=== PATIENT | male | born 1995 | race Caucasian/White ===

== ENCOUNTER 2017-09-27 07:00 | Emergency (ER) | payer OTHER ==
[2017-09-27 07:12] VITALS: O2SAT 98
--- NOTE | 2017-09-27 07:27 | ERPHSYRPT ---
- History of Present Illness Time Seen by Provider: 09/27/17 07:22 Source: patient Exam Limitations: no limitations Patient Subjective Stated Complaint: Pt states "I have poisen daylin really bad on my feet" Triage Nursing Assessment: Pt alert and oriented X 3, skin pwd. TP ambulates with a limp. PT has small wounds between toes on both feet, red rash up right leg. Physician History: The patient is a 22-year-old male complaining of getting poison daylin on both feet and his ankles that has worsened over the past 3 days. He has no more areas of poison daylin. He is allergic to poison daylin. He does not have any in his face. He has been using calamine lotion without good results. He states this difficult for him to wear his work boots because they rub up against a poison daylin. Timing/Duration: day(s) (3), gradual onset, worse Quality: itchy Severity: moderate Location: feet Possible Causes: exposure to allergen Modifying Factors: Improves With: calamine lotion Allergies/Adverse Reactions: No Known Drug Allergies Allergy (Verified 12/27/15 13:21) Home Medications: No Home Meds [No Home Meds] 1 [facility] UD 12/27/15 [History] Hx Tetanus, Diphtheria Vaccination/Date Given: Yes Hx Influenza Vaccination/Date Given: No Hx Pneumococcal Vaccination/Date Given: No Immunizations Up to Date: Yes - Review of Systems Constitutional: No Fever, No Chills Eyes: No Symptoms Ears, Nose, & Throat: No Symptoms Respiratory: No Cough, No Dyspnea Cardiac: No Chest Pain, No Edema, No Syncope Abdominal/Gastrointestinal: No Abdominal Pain, No Nausea, No Vomiting, No Diarrhea Genitourinary Symptoms: No Dysuria Musculoskeletal: No Back Pain, No Neck Pain Skin: Rash Neurological: No Dizziness, No Focal Weakness, No Sensory Changes Psychological: No Symptoms Endocrine: No Symptoms Hematologic/Lymphatic: No Symptoms Immunological/Allergic: No Symptoms All Other Systems: Reviewed and Negative - Past Medical History Pertinent Past Medical History: Yes Neurological History: No Pertinent History ENT History: No Pertinent History Cardiac History: No Pertinent History Respiratory History: No Pertinent History Endocrine Medical History: No Pertinent History Musculoskeletal History: No Pertinent History GI Medical History: No Pertinent History History: No Pertinent History Psycho-Social History: No Pertinent History Male Reproductive Disorders: No Pertinent History Other Medical History: MRSA L ARM - Past Surgical History Past Surgical History: No Neuro Surgical History: No Pertinent History Cardiac: No Pertinent History Respiratory: No Pertinent History Gastrointestinal: No Pertinent History Genitourinary: No Pertinent History Musculoskeletal: No Pertinent History Male Surgical History: No Pertinent History - Social History Smoking Status: Current every day smoker How long have you smoked: 10 years Exposure to second hand smoke: Yes Drug Use: none Patient Lives Alone: Yes - Nursing Vital Signs Nursing Vital Signs: Initial Vital Signs Temperature 98.0 F 09/27/17 07:05 Pulse Rate 76 09/27/17 07:05 Respiratory Rate 16 09/27/17 07:05 Blood Pressure 139/75 09/27/17 07:05 O2 Sat by Pulse Oximetry 98 09/27/17 07:05 Pain Scale Pain Intensity 5 - Physical Exam General Appearance: no apparent distress, alert Eye Exam: PERRL/EOMI, eyes nml inspection Ears, Nose, Throat Exam: normal ENT inspection, pharynx normal, moist mucous membranes Neck Exam: normal inspection, non-tender, supple, full range of motion Respiratory Exam: normal breath sounds, lungs clear, No respiratory distress Cardiovascular Exam: regular rate/rhythm, normal heart sounds Gastrointestinal/Abdomen Exam: soft, mass, No tenderness Rectal Exam: not done Back Exam: normal inspection, normal range of motion, No CVA tenderness, No vertebral tenderness Extremity Exam: normal inspection, normal range of motion Neurologic Exam: alert, oriented x 3, cooperative, normal mood/affect, sensation nml, No motor deficits Skin Exam: rash (Examination of bilateral feet: There are areas of linear rash with vesicles containing clear fluid. The rash can be seen between the toes and extending and areas along the medial aspect of both ankles.) SpO2 Interpretation: normal SpO2: 98 Oxygen Delivery: Room Air - Progress Progress: unchanged Counseled pt/family regarding: diagnosis - Departure Time of Disposition: 07:29 Departure Disposition: Home Clinical Impression: Contact dermatitis due to poison daylin Condition: Stable Critical Care Time: No Referrals: DOCTOR,NO FAMILY [Primary Care Provider] - Additional Instructions: You have poison daylin on your feet. Take prednisone 60 mg daily for 5 days. You were given a work excuse for today. Follow-up with your primary medical doctor as needed. Prescriptions: Prednisone 20 mg [Deltasone 20 mg] 3 tab PO DAILY #15 tablet
[2017-09-27 07:38] VITALS: BP 134/68; PULSE 80
== END 2017-09-27 07:39 | disposition home or self-care (01) ==
LOC: ED 07:00
DX: L23.7 Allergic contact dermatitis due to plants, except food (principal)
CPT/HCPCS: 99283

== ENCOUNTER 2017-10-13 12:25 | Emergency (ER) | payer OTHER ==
[2017-10-13 12:50] VITALS: BP 148/80; PULSE 74; O2SAT 99
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
[2017-10-13] MEDS ORDERED: TORAdol 30 mg Injection IM ONE (13:17)
[2017-10-13] MEDS ORDERED: Phenergan 25 MG INJ IM ONE (13:17)
[2017-10-13] MEDS ORDERED: Phenergan 25 MG INJ ONE (13:27)
[2017-10-13] MEDS ORDERED: TORAdol 30 mg Injection ONE (13:27)
--- NOTE | 2017-10-13 14:13 | XRAY ---
Indication: Left-sided headache, dizziness, and blurry vision. Multiple contiguous axial images obtained through the head without contrast. Comparison: December 27, 2015. Again normal appearing brain parenchyma, ventricles, and bony calvarium. Visualized paranasal sinuses and mastoid air cells are clear. Impression: Again normal CT head without contrast exam. CT DI 71.08
== END 2017-10-13 14:45 | disposition home or self-care (01) ==
LOC: ED 12:25
DX: G43.909 Migraine, unspecified, not intractable, without status migrainosus (principal)
CPT/HCPCS: 70450; 96372; 99283; J1885; J2550

== ENCOUNTER 2017-10-31 09:18 | Emergency (ER) | payer OTHER ==
[2017-10-31 09:28] VITALS: BP 146/88; PULSE 71; O2SAT 100
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
[2017-10-31] MEDS: BACTRIM DS TABLET PO STA (09:35)
[2017-10-31] MEDS ORDERED: BACTRIM DS TABLET PO ONE (09:35)
== END 2017-10-31 09:46 | disposition home or self-care (01) ==
LOC: ED 09:18
DX: L03.115 Cellulitis of right lower limb (principal)
CPT/HCPCS: 99283; A9270-GY

== ENCOUNTER 2019-02-09 00:18 | Emergency (ER) | payer MEDICAID, OTHER ==
[2019-02-09] MEDS ORDERED: Sodium Chloride 0.9% 1000 ML 1,000 ML IV STA ×2 (00:44→01:03)
[2019-02-09] MEDS ORDERED: Sodium Chloride 0.9% 1000 ML 1,000 ML ONE ×2 (00:45→01:08)
[2019-02-09] MEDS ORDERED: TORAdol 30 mg Injection IV ONE (00:49)
[2019-02-09] MEDS ORDERED: TORAdol 30 mg Injection ONE (00:50)
[2019-02-09 01:16] LABS: BASOPHIL % 0.3 % (0.0-0.4); Basophil (Absolute #) 0.03 (0-0.4); Eosinophil % 2.6 % (0.00-5.0); Hematocrit 40.9 % (42-50); Hemoglobin 13.8 gm/dl (12.5-18.0); Lymphocyte (Absolute #) 1.44 (1.0-4.6); Lymphocytes % 12.4 % (24.0-44.0); Mean Cell Volume 90.1 fl (78-100); Mean Corpuscular Hemoglobin 30.4 pg (26-32); Mean Corpuscular Hgb Concent. 33.7 g/dl (32-36); Monocyte (Absolute #) 1.34 (0.0-1.3); Monocytes % 11.5 % (0.0-12.0); Neutrophil % 73.2 % (36.0-66.0); Platelet Count 227 K/mm3 (150-450); Red Blood Count 4.54 M/mm3 (4.1-5.6); Red Cell Distribution Width 11.9 % (11.5-14.0); White Blood Count 11.6 K/mm3 (4.0-10.5)
[2019-02-09 01:24] LABS: ALKALINE PHOSPHATASE 59 U/L (38-126); ANION GAP 13.9 MEQ/L (5-15); BLOOD UREA NITROGEN 6 mg/dL (9-20); CHLORIDE 100 mmol/L (98-107); Calcium 9.1 mg/dL (8.4-10.2); Carbon Dioxide 28 mmol/L (22-30); Creatinine 1 0.74 mg/dL (0.66-1.25); Glucose 118 mg/dL (74-106); Potassium 4.2 mmol/L (3.5-5.1); SGOT/AST 21 U/L (17-59); SGPT/ALT 13 U/L (0-50); SODIUM 138 mmol/L (137-145); Total Protein 7.5 g/dL (6.3-8.2)
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
[2019-02-09] MEDS ORDERED: ROCEPHIN 1 Gm-D5w 50 ml Bag** 1 G/50 ML IVPB IV STA (02:17)
[2019-02-09] MEDS ORDERED: ROCEPHIN 1 Gm-D5w 50 ml Bag** 1 G/50 ML IVPB IV ONE (02:22)
[2019-02-09 02:45] LABS: INFLUENZA A NEGATIVE (NEGATIVE); INFLUENZA B NEGATIVE (NEGATIVE); RESPIRATORY SYNCTIAL VIRUS NEGATIVE (Negative)
[2019-02-09 02:53] LABS: Appearance CLEAR (CLEAR); Bilirubin NEGATIVE (NEGATIVE); Blood NEGATIVE Ery/ul (0-5); Glucose NEGATIVE (NEGATIVE); Ketones NEGATIVE (NEGATIVE); Leukocyte Esterase TRACE (NEGATIVE); Nitrite NEGATIVE (NEGATIVE); Protein,Urine Dip NEGATIVE (Negative); Specific Gravity 1.005 (1.005-1.025); Urobilinogen NEGATIVE mg/dL (0-1)
[2019-02-09 03:37] VITALS: BP 154/89; PULSE 78; O2SAT 98
--- NOTE | 2019-02-09 14:55 | XRAY ---
Exam: Testicular ultrasound from 02/09/2019. Comparison: None. Indication: Rule out testicular torsion. Findings: The right testicle measures 4.0 cm x 1.9 cm x 3.7 cm and reveals a uniform acoustical architecture without evidence of mass or microlithiasis. Normal color blood flow is seen within the right testicle. The head of the right epididymis measures 1.2 cm x 0.9 cm x 1.1 cm and appears unremarkable. The left testicle measures 4.15 cm x 2.2 cm x 2.8 cm and also reveals a uniform acoustical architecture without evidence of mass or microlithiasis. There is relatively increased blood flow within the left testicle. The head of the left epididymis measures 1.3 cm x 1.4 cm x 1.1 cm and demonstrates some increased blood flow within it as well. No significant hydrocele is seen. Impression: 1. No evidence of testicular torsion is seen. 2. There is relative increased blood flow within the left testicle and epididymis as compared to the right side suggesting left-sided epididymo-orchitis. No abscess or other mass is seen.
== END 2019-02-09 03:37 | disposition home or self-care (01) ==
LOC: ED 00:18
DX: N45.1 Epididymitis (principal); N41.9 Inflammatory disease of prostate, unspecified; K05.6 Periodontal disease, unspecified; R50.9 Fever, unspecified
CPT/HCPCS: 36000; 36415; 76870; 80053; 81001; 83605; 85025; 87040; 87086; 87631; 96374; 99284; J0696; J1885

== ENCOUNTER 2019-06-18 13:40 | Emergency (ER) | payer SELFPAY ==
[2019-06-18 13:52] VITALS: BP 133/89; PULSE 96; O2SAT 100
--- NOTE | 2019-06-18 14:19 | XRAY ---
Indication: Cough. Comparison: November 17, 2015. Portable chest again demonstrates normal heart, lungs, and bony thorax.
[2019-06-18] MEDS ORDERED: DELTASONE 20 MG PO ONE (14:43)
[2019-06-18] MEDS ORDERED: DELTASONE 20 MG ONE (14:45)
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
== END 2019-06-18 14:54 | disposition home or self-care (01) ==
LOC: ED 13:40
DX: J40 Bronchitis, not specified as acute or chronic (principal); R05 Cough
CPT/HCPCS: 71045; 99283; A9270-GY

== ENCOUNTER 2019-11-30 23:15 | Emergency (ER) | payer MEDICAID ==
[2019-11-30] MEDS ORDERED: MOTRIN 600 MG PO ONE (23:45)
[2019-11-30] MEDS ORDERED: AMOXIL 500 MG PO ONE (23:45)
[2019-11-30] MEDS ORDERED: PERCOCET TABLET 5/325MG PO STA ×2 (23:45→23:52)
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
[2019-12-01] MEDS ORDERED: AMOXIL 500 MG ONE (00:03)
[2019-12-01] MEDS ORDERED: MOTRIN 600 MG ONE (00:03)
[2019-12-01] MEDS ORDERED: PERCOCET TABLET 5/325MG ONE (00:03)
[2019-12-01 00:18] VITALS: BP 168/98; PULSE 62; O2SAT 95
== END 2019-12-01 00:22 | disposition home or self-care (01) ==
LOC: ED 23:15
DX: K02.9 Dental caries, unspecified (principal); K08.89 Other specified disorders of teeth and supporting structures
CPT/HCPCS: 99283; A9270-GY

== ENCOUNTER 2019-12-16 22:01 | Emergency (ER) | payer MEDICAID ==
[2019-12-16 22:21] VITALS: BP 159/69; PULSE 102; O2SAT 97
[2019-12-16] MEDS ORDERED: Zofran 4 MG/2 ML VIAL IV ONE (22:39)
[2019-12-16] MEDS ORDERED: Hydromorphone 1 mg/ml Injection IV ONE (22:39)
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
[2019-12-16] MEDS ORDERED: ROCEPHIN 1 Gm-D5w 50 ml Bag** 1 G/50 ML IVPB IV STA (22:40)
[2019-12-16] MEDS ORDERED: Vibramycin 100 MG PO ONE (22:41)
[2019-12-16] MEDS ORDERED: Sodium Chloride 0.9% 1000 ML 1,000 ML IV SCH (22:45)
[2019-12-16] MEDS ORDERED: Rocephin 500 MG INJ IM ONE (23:08)
[2019-12-16] MEDS ORDERED: Vibramycin 100 MG ONE (23:20)
[2019-12-16] MEDS ORDERED: Rocephin 500 MG INJ ONE (23:20)
--- NOTE | 2019-12-17 09:24 | XRAY ---
Indication: Left testicular pain and swelling. Two-dimensional testicular sonogram performed. Comparison: February 09, 2019. Both testicles again homogeneous in echogenicity. Right testicle measures 4.4 x 2.0 x 2.8 cm and the left measures 3.8 x 2.4 x 3.1 cm. Right testicle demonstrate normal color perfusion. Left testicle again demonstrates hyperemic color Doppler flow favoring orchitis. Again enlarged left epididymis wasn't before measuring 1.8 x 1.8 x 1.8 cm with hypervascular color Doppler flow favoring epididymitis. Right epididymis sonographically normal. No suspicious extratesticular mass or hydrocele. Impression: 1. Again sonographic features as detailed favoring left epididymoorchitis. 2. Remaining testicular sonogram is negative. Comment: Preliminary report was given.
== END 2019-12-16 23:42 | disposition home or self-care (01) ==
LOC: ED 22:01
DX: N45.1 Epididymitis (principal)
CPT/HCPCS: 76870; 96372; 99284; J0696; A9270-GY

== ENCOUNTER 2021-05-11 10:34 | Emergency (ER) | payer MEDICAID | END 2021-05-11 11:00 | disposition left against medical advice (07) | LOC: ED 10:34 | DX: Z53.9 Procedure and treatment not carried out, unspecified reason (principal) ==

== ENCOUNTER 2021-08-17 18:54 | Emergency (ER) | payer MEDICAID, OTHER ==
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
[2021-08-17] MEDS ORDERED: Sodium Chloride 0.9% 1000 ML 1,000 ML IV STA (19:10)
[2021-08-17] MEDS ORDERED: LOPRESSOR INJECTION IV ONE ×2 (19:11→19:22)
[2021-08-17] MEDS ORDERED: Sodium Chloride 0.9% 1000 ML 1,000 ML ONE (19:23)
[2021-08-17 19:41] LABS: Absolute Neutrophil Ct (ANC) 2.94 x10^3/uL (1.4-6.9); Basophil (Absolute #) 0.05 x10^3/uL (0-0.4); Eosinophil % 8.3 % (0.00-5.0); Eosinophil (Absolute #) 0.47 x10^3/uL (0-0.5); Hematocrit 45.5 % (42-50); Hemoglobin 15.6 g/dL (12.5-18.0); Lymphocyte (Absolute #) 1.28 x10^3/uL (1.0-4.6); Lymphocytes % 22.6 % (24.0-44.0); Mean Cell Volume 89.9 fL (78-100); Mean Corpuscular Hemoglobin 30.8 pg (26-32); Mean Corpuscular Hgb Concent. 34.3 g/dL (32-36); Mean Platelet Volume 8.6 fL (7.5-11.0); Monocyte (Absolute #) 0.91 x10^3/uL (0.0-1.3); Neutrophil % 51.8 % (36.0-66.0); Platelet Count 235 x10^3/uL (150-450); Red Blood Count 5.06 x10^6/uL (4.1-5.6); Red Cell Distribution Width 12.5 % (11.5-14.0); White Blood Count 5.7 x10^3/uL (4.0-10.5)
[2021-08-17] MEDS ORDERED: HYDROCODONE-ACETAMIN 2.5-108/5 ML SOLUTION PO STA ×2 (19:41→21:21)
[2021-08-17] MEDS ORDERED: solu-MEDROL 125 MG, Sterile H2O 10 ml 2 ML IV ONE ×2 (19:41)
[2021-08-17] MEDS ORDERED: HYDROCODONE-ACETAMIN 2.5-108/5 ML SOLUTION ONE ×2 (19:46→21:56)
[2021-08-17] MEDS ORDERED: Sterile H2O 10 ml IJ ONE (19:46)
[2021-08-17] MEDS ORDERED: solu-MEDROL ONE (19:46)
[2021-08-17 19:54] LABS: ALBUMIN 4.4 g/dL (3.5-5.0); ALKALINE PHOSPHATASE 77 U/L (38-126); ANION GAP 17.1 MEQ/L (5-15); BLOOD UREA NITROGEN 15 mg/dL (9-20); CHLORIDE 104 mmol/L (98-107); Calcium 8.7 mg/dL (8.4-10.2); Carbon Dioxide 22 mmol/L (22-30); EST GLOMERULAR FILTRATION RATE > 60.0 ML/MIN; Glucose 94 mg/dL (74-106); Potassium 3.7 mmol/L (3.5-5.1); SGOT/AST 26 U/L (17-59); SGPT/ALT 17 U/L (0-50); SODIUM 139 mmol/L (137-145); Total Protein 7.8 g/dL (6.3-8.2)
[2021-08-17 20:10] LABS: Group A Strep NOT DETECTED (NEGATIVE)
[2021-08-17 20:14] LABS: Appearance CLEAR (CLEAR); Bilirubin NEGATIVE (NEGATIVE); Glucose NEGATIVE (NEGATIVE); Ketones NEGATIVE (NEGATIVE); Mucus SLIGHT /HPF (NEGATIVE)
[2021-08-17 20:15] LABS: Nitrite NEGATIVE (NEGATIVE); Ph 6.5 (5-6); Protein,Urine Dip NEGATIVE (Negative); RBC NEGATIVE Ery/ul (0-5); Urine Cultured Indicated? YES; Urobilinogen 0.2 mg/dL (0-1)
[2021-08-17 20:20] LABS: Dipstick done @ ? MAIN LAB
[2021-08-17 20:21] LABS: INFLUENZA A NEGATIVE (NEGATIVE); INFLUENZA B NEGATIVE (NEGATIVE); RESPIRATORY SYNCTIAL VIRUS NEGATIVE (Negative); SARS-CoV-2 Xpert Express NEGATIVE (NEGATIVE)
[2021-08-17] MEDS ORDERED: ROCEPHIN 1 Gm-D5w 50 ml Bag** 1 G/50 ML IVPB IV STA (21:16)
[2021-08-17] MEDS ORDERED: ROCEPHIN 1 Gm-D5w 50 ml Bag** 1 G/50 ML IVPB IV ONE (21:26)
[2021-08-17 22:04] VITALS: BP 141/100; PULSE 100; O2SAT 96
--- NOTE | 2021-08-18 08:42 | XRAY ---
Indication: Fever and cough. Comparison: June 18, 2019. Portable chest again demonstrates normal heart, lungs, and bony thorax.
== END 2021-08-17 22:08 | disposition home or self-care (01) ==
LOC: ED 18:54
DX: N39.0 Urinary tract infection, site not specified (principal); J02.9 Acute pharyngitis, unspecified; R50.9 Fever, unspecified; R51.9 Headache, unspecified; R05.1 Acute cough; Z72.0 Tobacco use; Z79.899 Other long term (current) drug therapy; Z28.310 Unvaccinated for COVID-19; Z79.891 Long term (current) use of opiate analgesic
CPT/HCPCS: 0241U; 36000; 36415; 71045; 80053; 81015; 83605; 85025; 86308; 87040; 87086; 87651; 94760; 96374; 96375; 99284; J0696; J2930; A9270-GY

== ENCOUNTER 2021-10-22 21:35 | Emergency (ER) | payer OTHER ==
[2021-10-22 21:47] VITALS: O2SAT 97
[2021-10-22] MEDS ORDERED: Augmentin 875-125 Tablet PO ONE (21:50)
[2021-10-22] MEDS ORDERED: TORAdol 30 mg Injection IM ONE (21:50)
[2021-10-22] MEDS ORDERED: TORAdol 30 mg Injection ONE (21:54)
[2021-10-22] MEDS ORDERED: Augmentin 875-125 Tablet ONE (21:54)
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
[2021-10-22 22:09] VITALS: BP 145/91; PULSE 96
== END 2021-10-22 22:09 | disposition home or self-care (01) ==
LOC: ED 21:35
DX: K04.7 Periapical abscess without sinus (principal); R68.84 Jaw pain; R51.9 Headache, unspecified; I10 Essential (primary) hypertension; Z72.0 Tobacco use; Z79.899 Other long term (current) drug therapy; Z79.891 Long term (current) use of opiate analgesic; Z28.310 Unvaccinated for COVID-19
CPT/HCPCS: 96372; 99283; J1885; A9270-GY

== ENCOUNTER 2021-12-13 13:10 | Emergency (ER) | payer OTHER ==
[2021-12-13 13:26] VITALS: O2SAT 98
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
[2021-12-13] MEDS ORDERED: DECADRON 10MG INJ. PO ONE (14:15)
[2021-12-13] MEDS ORDERED: DECADRON 10MG INJ. ONE (14:19)
[2021-12-13 14:30] VITALS: BP 151/86; PULSE 86
== END 2021-12-13 14:38 | disposition home or self-care (01) ==
LOC: ED 13:10
DX: J02.9 Acute pharyngitis, unspecified (principal); J06.9 Acute upper respiratory infection, unspecified; R05.1 Acute cough; I10 Essential (primary) hypertension; Z72.0 Tobacco use; Z79.899 Other long term (current) drug therapy; Z28.310 Unvaccinated for COVID-19
CPT/HCPCS: 99281; J1100